=== PATIENT | female | born 1975 | race Caucasian/White ===

== ENCOUNTER 2017-10-07 07:51 | Inpatient (IN) | payer MEDICAID ==
[2017-10-05 10:52] LABS: BASOPHIL % 0.4 % (0-2); PLATELET COUNT 235 x10^3mcL (130-400); RED CELL DISTRIBUTION WIDTH 12.7 % (11.5-14.5)
[2017-10-05 11:06] LABS: ALBUMIN 3.7 g/dL (3.4-5.0); ALKALINE PHOSPHATASE 82 U/L (46-116); ALT/SGPT 22 U/L (14-59); AST/SGOT 15 U/L (15-37); BILIRUBIN TOTAL 0.5 mg/dL (0.20-1.00); CHLORIDE SERUM 103 mmol/L (98-107); CREATININE SERUM 0.8 mg/dL (0.6-1.0); GFR1 > 60 mL/min; GLUCOSE SERUM 82 mg/dL (74-106); POTASSIUM SERUM 4.5 mmol/L (3.5-5.1); SODIUM SERUM 141 mmol/L (136-145); TOTAL PROTEIN, SERUM 8.2 g/dL (6.4-8.2)
[~2017-10-07] VITALS: Ht 165.1 cm; Wt 57.1 kg
[2017-10-07 08:16] VITALS: BP 140/95
[2017-10-07 15:20] VITALS: BP 141/90
[2017-10-07 21:40] VITALS: BP 125/91
[2017-10-08 04:37] VITALS: BP 107/72
[2017-10-08 08:15] VITALS: BP 132/91
[2017-10-08 18:00] VITALS: BP 137/94
[2017-10-08 20:06] VITALS: Ht 165.1 cm; Wt 57.1 kg
[2017-10-08 21:31] VITALS: BP 137/87
[2017-10-09 04:18] VITALS: BP 119/74
[2017-10-09] MEDS ORDERED: NORCO1 TA2 PO ×2 (06:05→06:30)
[2017-10-09 08:49] VITALS: BP 137/96
[2017-10-09 09:39] LABS: BASOPHIL % 0.2 % (0-2); PLATELET COUNT 223 x10^3mcL (130-400); RED CELL DISTRIBUTION WIDTH 12.4 % (11.5-14.5)
[2017-10-09 10:02] LABS: CALCIUM 8.8 mg/dL (8.5-10.1); CARBON DIOXIDE 26.9 mmol/L (21-32); CHLORIDE SERUM 103 mmol/L (98-107); CREATININE SERUM 0.8 mg/dL (0.6-1.0); GFR1 > 60 mL/min; GLUCOSE SERUM 82 mg/dL (74-106); POTASSIUM SERUM 3.8 mmol/L (3.5-5.1); SODIUM SERUM 138 mmol/L (136-145)
[2017-10-09 10:10] VITALS: BP 137/96
== END 2017-10-09 10:45 | disposition home or self-care (01) | DRG 362 ==
LOC: DS 07:51 → OR 10:00 → DS 10:00 → MU 14:06
PROVIDERS: Family Medicine Sports Medicine; Surgery
PROC: 07B50ZX Excision of Right Axillary Lymphatic, Open Approach, Diagnostic (ICD-10-PCS; 2017-10-07)
PROC: 0HTT0ZZ Resection of Right Breast, Open Approach (ICD-10-PCS; principal; 2017-10-07 10:00)
DX: C50.911 Malignant neoplasm of unspecified site of right female breast (principal); C77.3 Secondary and unspecified malignant neoplasm of axilla and upper limb lymph nodes; I10 Essential (primary) hypertension; Z53.29 Procedure and treatment not carried out because of patient's decision for other reasons; Z72.89 Other problems related to lifestyle
CPT/HCPCS: J0690; J2175; J2250; J2405; J2704; J3010; J3490; J7030; J7120; Q0092

== ENCOUNTER 2017-12-15 07:29 | Day surgery (SDC) | payer MEDICAID ==
[2017-12-12 10:53] LABS: BASOPHIL % 0.3 % (0-2); PLATELET COUNT 241 x10^3mcL (130-400); RED CELL DISTRIBUTION WIDTH 12.6 % (11.5-14.5)
[2017-12-12 11:14] LABS: ALBUMIN 3.5 g/dL (3.4-5.0); ALKALINE PHOSPHATASE 78 U/L (46-116); ALT/SGPT 21 U/L (14-59); AST/SGOT 15 U/L (15-37); BILIRUBIN TOTAL 0.3 mg/dL (0.20-1.00); CALCIUM 8.7 mg/dL (8.5-10.1); CARBON DIOXIDE 29.6 mmol/L (21-32); CHLORIDE SERUM 104 mmol/L (98-107); CREATININE SERUM 0.7 mg/dL (0.6-1.0); GFR1 > 60 mL/min; GLUCOSE SERUM 93 mg/dL (74-106); POTASSIUM SERUM 4.5 mmol/L (3.5-5.1); SODIUM SERUM 138 mmol/L (136-145); TOTAL PROTEIN, SERUM 7.7 g/dL (6.4-8.2)
[~2017-12-15] VITALS: Ht 165.1 cm; Wt 58.0 kg
[~2017-12-15 07:29] MED LIST: NORCO1 TA2 PO
[2017-12-15 07:38] VITALS: BP 120/55
[2017-12-15 12:54] VITALS: BP 137/90
== END 2017-12-15 12:50 | disposition home or self-care (01) ==
LOC: DS 07:29 → OR 07:30 → DS 12:50
PROVIDERS: Surgery
PROC: 0HBT0ZZ Excision of Right Breast, Open Approach (ICD-10-PCS; principal; 2017-12-15 09:30)
DX: C77.3 Secondary and unspecified malignant neoplasm of axilla and upper limb lymph nodes (principal); Z85.3 Personal history of malignant neoplasm of breast; Z17.0 Estrogen receptor positive status [ER+]; Z68.21 Body mass index [BMI] 21.0-21.9, adult
CPT/HCPCS: 88344; 88361; J0690; J2405; J2704; J3010; J3490; J7120